=== PATIENT | male | born 1990 | race Caucasian/White ===

== ENCOUNTER → 2016-08-19 | Outpatient (CLI) | payer OTHER ==
[~2016-08-19] MED LIST: MULT-506 PO; OXYC-57 PO
--- NOTE | 2016-08-19 11:24 | DIAGNOSTIC IMAGING REPORT ---
SINUS CT CT DOSE: 798.33 mGy.cm HISTORY: CHRONIC SINUSITIS TECHNIQUE: Multiaxial CT images of the paranasal sinuses were performed and reformatted in the coronal plane without the use of contrast. COMPARISON: Sinus CT 07/17/2013. FINDINGS: The frontal sinuses, ethmoid air cells, right sphenoid sinus, right maxillary antrum, and mastoid air cells are clear. Moderate mucosal thickening with a fluid level within the left sphenoid sinus. Partial opacification of the left sphenoethmoidal recess. Mild mucosal thickening within the floor of the left maxillary sinus and a tiny retention cyst. The bilateral anterior clinoids are pneumatized. No evidence for carotid canal dehiscence. The lamina papyracea and orbital floors are intact. The bilateral ostiomeatal units are patent. Minimal left nasal septal deviation with a small left-sided nasal spur. The orbits and visualized brain parenchyma are unremarkable. IMPRESSION: 1. Acute on chronic left sphenoid sinusitis. 2. Minimal left nasal septal deviation with a small nasal spur. Electronically signed by: Prince Jones M.D. 08/19/2016 11:23 AM Dictated Date/Time: 08/19/2016 11:19 AM
== END | disposition home or self-care (01) ==
LOC: C.CTS 11:04
PROVIDERS: ATTEND Otolaryngology
DX: J32.9 Chronic sinusitis, unspecified (principal)

== ENCOUNTER → 2016-09-17 | Day surgery (SDC) | payer OTHER ==
[2016-09-15 11:49] VITALS: Ht 180.3 cm; Wt 77.3 kg
--- NOTE | 2016-09-16 20:26 | HISTORY & PHYSICAL EXAMINATION ---
DATE OF ADMISSION: 09/17/2016 DIAGNOSIS: Chronic sinusitis. HISTORY OF PRESENT ILLNESS: This 26-year-old gentleman presented with recurrent chronic sinusitis and chronic headaches, treated with antibiotics without response. PAST MEDICAL HISTORY: MEDICAL PROBLEMS: None. PREVIOUS SURGERIES: Appendectomy, right arm surgery and patellar surgery. ALLERGIES: AMOXICILLIN, CECLOR, SULFA, AND MINOCYCLINE. MEDICATIONS: None. FAMILY HISTORY: Negative. SOCIAL HISTORY: Negative. REVIEW OF SYSTEMS: Otherwise, negative. PHYSICAL EXAMINATION: GENERAL: WNWD male. VITAL SIGNS: 5 feet 7 inches, 170 pounds. HEAD: Normocephalic. EYES: Normal. EARS: Tympanic membranes intact. NOSE: Nasal passage is swollen turbinates. THROAT: Oropharynx normal. NECK: Supple. HEART: RRR. LUNGS: Clear. ABDOMEN: Soft. GENITOURINARY: Deferred. EXTREMITIES: Full range of motion. IMAGING DATA: The CT scan showed moderate mucosal thickening with a fluid level in the left sphenoid sinus and partial opacification of the sphenoethmoidal recess. There is also mucosal thickening of the floor of the maxillary sinuses with cysts. IMPRESSION: Chronic sinusitis. PLAN: For endoscopic sinus surgery.
[~2016-09-17] VITALS: Ht 180.3 cm; Wt 77.3 kg
[~2016-09-17] MED LIST changes: +ATROPINE SULFATE 0.1 MG/ML 5ML SYR IV PRN; +CLINDAMYCIN PHOS 150 MG/ML 2 ML VIAL IV SCH; +DEXAMETHASONE SOD INJ 4 MG/ML VIAL ONE; +EpHEDrine SULFATE INJ 50 MG/ML AMP IV PRN; +EpINEphrine INJ 1MG/ML AMP 1 MG/ML AMP ONE; +FENTANYL CITRATE INJ 50 MCG/1 ML 2 ML VIAL IV PRN; +FENTANYL CITRATE INJ 50 MCG/1 ML 2 ML VIAL ONE; +GLYCOPYRROLATE INJ 0.2 MG/ML VIAL ONE; +LACTATED RINGER'S 1000ML 1,000 ML IV SCH; +LIDO 2%/EPINEPHRINE 1:100000 20 ML VIAL INFIL ONE; +LIDOCAINE 4% MPF SOAK 5 ML = 1 DOSE TOP ONE; +LIDOCAINE HCL 2% 2 ML VIAL (20MG/ML) ONE; +MIDAZOLAM HCL 1 MG/ML 2ML VIAL ONE; +ONDANSETRON INJ 2 MG/ML 2 ML VIAL IV PRN; +ONDANSETRON INJ 2 MG/ML 2 ML VIAL ONE; +OXYCODONE/ACETAMINOPHEN 5-325 TAB PO PRN; +PROPOFOL IV EMULSION 10 MG/ML 20 ML VIAL IV ONE; +SODIUM CHLORIDE 0.9% 1000ML 1,000 ML IV SCH
--- NOTE | 2016-09-17 08:13 | History & Physical Bridge Note ---
H&P Re-Evaluation Bridge Note: I have examined the patient, reviewed the History & Physical and in the interval since the performance of the History & Physical I have noted the following changes of clinical significance: No changes noted
--- NOTE | 2016-09-17 08:15 | Discharge Instructions-SurgCtr ---
Discharge Instructions Date of Service Sep 17, 2016. Visit Reason for Visit: Chronic Sinusitis Discharge Discharge Diagnosis / Problem: same Discharge Goals Goal(s): Improve function Activity Recommendations Activity Limitations: resume your previous activity Anesthesia . Post Anesthesia Instructions: If you have had General Anesthesia or IV Sedation: * Do not drive today. * Resume driving when surgeon permits. * Do not make important decisions or sign legal documents today. * Call surgeon for: 1. Temperature elevations greater than 101 degrees F. 2. Uncontrollable pain. 3. Excessive bleeding. 4. Persistent nausea and vomiting. 5. Medication intolerance (nausea, vomiting or rash). * For nausea and vomiting use only clear liquids such as: tea, soda, bouillon until nausea subsides, then gradually increase diet as tolerated. * If you have any concerns or questions, call your surgeon's office. If physician is unavailable and it is an emergency, call 911 or go to the nearest emergency room. . Diet Recommendations Home Diet: no limitations Procedures Procedures Performed: Endoscopic Sinus Surgery; Right & left frontal, right & left sphenoid, right & left maxillary, right & left total ethmoidectomy Pending Studies Studies pending at discharge: no Medical Emergencies . Who to Call and When: Medical Emergencies: If at any time you feel your situation is an emergency, please call 911 immediately. . Non-Emergent Contact Non-Emergency issues call your: Primary Care Provider . . "Provider Documentation" section prepared by Annie Murphy. . [place] Drug Monitoring Program Search Results: no issues identified
[2016-09-17 09:10] VITALS: TEMP 36.6
--- NOTE | 2016-09-17 09:47 | Discharge Instructions-SurgCtr ---
Discharge Instructions Date of Service Sep 17, 2016. Visit Reason for Visit: Chronic Sinusitis Discharge Discharge Diagnosis / Problem: same Discharge Goals Goal(s): Therapeutic intervention Activity Recommendations Activity Limitations: resume your previous activity Anesthesia . Post Anesthesia Instructions: If you have had General Anesthesia or IV Sedation: * Do not drive today. * Resume driving when surgeon permits. * Do not make important decisions or sign legal documents today. * Call surgeon for: 1. Temperature elevations greater than 101 degrees F. 2. Uncontrollable pain. 3. Excessive bleeding. 4. Persistent nausea and vomiting. 5. Medication intolerance (nausea, vomiting or rash). * For nausea and vomiting use only clear liquids such as: tea, soda, bouillon until nausea subsides, then gradually increase diet as tolerated. * If you have any concerns or questions, call your surgeon's office. If physician is unavailable and it is an emergency, call 911 or go to the nearest emergency room. . Instructions / Follow-Up Instructions / Follow-Up ACTIVITY RECOMMENDATIONS: * Being up and around is good, but no strenuous activity, heavy lifting or physical exertion for one week. * Keep your head elevated 30 degrees when lying down or sleeping. * Do not blow your nose for 48 hours, sniff back instead. * Avoid hot showers. OVER THE COUNTER MEDICATIONS: * You may use Tylenol * Avoid aspirin or aspirin containing products, e.g. as they may increase bleeding. SPECIAL CARE INSTRUCTIONS: * Expect to have bloody drainage from your nose and/or down your throat for one to three days. Change drip pad as needed. * Begin irrigating your nose with saline solution today, at least six to ten times per day and sniff back to help remove old clots or crust. * You may experience nasal and facial congestion, pain and pressure, this is normal. * Please call with any significant and/or progressive pain, redness, swelling around the eyes, visual changes, fever of 101.5 degrees F, active bleeding or any problems or concerns. * If active bleeding occurs, spray the nose three times at one minute intervals with Afrin spray and call or cell phone: . If unable to reach the doctor, go to the nearest Emergency Department. Special Diet: * Avoid extremely hot fluids. FOLLOW UP VISIT: Follow-up Visit with Dr. Murphy If not already scheduled, please call to schedule. Diet Recommendations Home Diet: no limitations Procedures Procedures Performed: Endoscopic Sinus Surgery; Right & left frontal, right & left sphenoid, right & left maxillary, right & left total ethmoidectomy Pending Studies Studies pending at discharge: no Medical Emergencies . Who to Call and When: Medical Emergencies: If at any time you feel your situation is an emergency, please call 911 immediately. . Non-Emergent Contact Non-Emergency issues call your: Primary Care Provider . . "Provider Documentation" section prepared by Annie Murphy. . [facility] Drug Monitoring Program Search Results: no issues identified
[2016-09-17 09:50] VITALS: BP 134/86; PULSE 70; O2SAT 100
--- NOTE | 2016-09-17 10:04 | Anesthesia Progress Nt - [facility] ---
Anesthesia Post Op Note Date & Time Sep 17, 2016 at 10:04 Vital Signs Pain Intensity: 0 Vital Signs Past 12 Hours Date Time Temp Pulse Resp B/P (MAP) Pulse Ox O2 Delivery O2 Flow Rate FiO2 09/17/16 09:10 36.6 71 16 134/88 (103) 100 Room Air 09/17/16 08:56 138/93 09/17/16 08:55 36.6 09/17/16 08:55 77 16 09/17/16 08:55 75 16 98 09/17/16 08:51 138/85 09/17/16 08:50 72 0 09/17/16 08:50 72 0 98 09/17/16 08:46 137/90 09/17/16 08:45 103 9 96 09/17/16 08:45 102 9 09/17/16 08:41 134/91 09/17/16 08:40 86 7 100 09/17/16 08:40 85 7 09/17/16 08:36 138/83 09/17/16 08:35 75 10 09/17/16 08:35 75 10 100 09/17/16 08:31 142/87 09/17/16 08:30 79 0 09/17/16 08:30 80 0 100 09/17/16 08:26 142/84 09/17/16 08:25 81 12 09/17/16 08:25 78 12 100 09/17/16 08:21 139/99 09/17/16 08:20 96 18 100 09/17/16 08:20 97 18 09/17/16 08:18 36.6 105 16 136/87 100 Diffusion Mask 09/17/16 06:26 36.6 65 16 99/61 (74) 96 Room Air Notes Mental Status: alert / awake / arousable, participated in evaluation Pt Amnestic to Procedure: Yes Nausea / Vomiting: adequately controlled Pain: adequately controlled Airway Patency, RR, SpO2: stable & adequate BP & HR: stable & adequate Hydration State: stable & adequate Anesthetic Complications: no major complications apparent
--- NOTE | 2016-09-17 10:46 | OPERATIVE REPORT ---
DATE OF OPERATION: 09/17/2016 PREOPERATIVE DIAGNOSIS: Chronic sinusitis. POSTOPERATIVE DIAGNOSIS: Same. PROCEDURES: Right and left frontal, right and left sphenoid, right and left total ethmoid and right and left maxillary sinus antrostomies. SURGEON: Dr. Murphy. ANESTHESIA: General LMA. COMPLICATIONS: None. BLOOD LOSS: 25 mL. HISTORY OF PRESENT ILLNESS: A 26-year-old with significant recurrent chronic sinusitis for at least 4 years [address] persistent headaches. CT showed opacified sphenoid, ethmoid and maxillary and frontal mucosal thickening. OPERATION AND FINDINGS: PROCEDURE: The patient was brought to the operating room and placed in supine position. General anesthesia was induced using LMA, prepped, draped in usual sterile manner. Clari device was calibrated and used for the entire procedure. The right sphenoid was cannulated with guidewire with [employer] computer guidance and dilated using the 6 mm balloon as was the left sphenoid sinus. Both sinuses were suctioned clean of mucus. The right maxillary sinus cannulated with guidewire and dilated using the 6 mm balloon as was the left maxillary sinus. The right nasofrontal duct was cannulated with guidewire with [employer] computer guidance and dilated using 6 mm balloon. The guidewire was left in place as a marker. Frontal sinusotomy was performed by removing the anterior wall, then the posterior wall of the agger nasi cell following the guidewire superiorly opening up the nasofrontal duct and leaving the mucosa posteriorly and laterally intact. At this point, total ethmoidectomy was performed opening up the bullae ethmoidalis going through the ground lamella into the posterior ethmoid air cells, delineating the posterior most ethmoid air cell along with the skull base and lamina papyracea with the [employer] device and following these structures anteriorly exonerating all the posterior and then exonerating all the anterior ethmoid air cells up to the previously dilated nasofrontal duct. The maxillary sinus was opened by removing polypoid tissue at the posterior border near the anterior wall of the bullae ethmoidalis. The sphenoid was opened by removing polypoid tissue at its anterior face near the inferior border of the superior turbinate. The left frontal sinusotomy, sphenoidotomy, total ethmoidectomy, and maxillary sinus antrostomy was performed in a similar manner. Propel stents were placed. The patient tolerated procedure well and was taken to recovery area in satisfactory condition. I attest to the content of the Intraoperative Record and any orders documented therein. Any exception s are noted below.
== END | disposition home or self-care (01) ==
LOC: X.SURG 06:16
PROVIDERS: ATTEND Otolaryngology
DX: J32.9 Chronic sinusitis, unspecified (principal)